=== PATIENT | male | born 1985 | race Caucasian/White ===

== ENCOUNTER 2019-01-30 15:20 | Emergency (ER) | payer OTHER ==
--- NOTE | 2019-01-30 16:25 | RADIOLOGY REPORT (SQ) ---
EXAM DESCRIPTION: WRIST LEFT 3 VIEWS COMPLETED DATE/TIME: 01/30/2019 4:08 pm REASON FOR STUDY: laceration, swelling COMPARISON: None. EXAM PARAMETERS: NUMBER OF VIEWS: Three views. TECHNIQUE: AP, lateral and oblique radiographic images acquired of the left wrist. LIMITATIONS: None. FINDINGS: MINERALIZATION: Normal. BONES: No acute fracture or dislocation. No worrisome bone lesions. JOINTS: No effusion. SOFT TISSUES: No significant soft tissue swelling. No radiopaque foreign body. OTHER: No other significant finding. IMPRESSION: NO FRACTURE. TECHNICAL DOCUMENTATION: JOB ID: [id number] [place]-72 2010 [employer]- All Rights Reserved Reading location - IP/workstation name: [email or web address]
--- NOTE | 2019-01-30 16:26 | ER Document Report ---
HPI - HPI Time Seen by Provider: 01/30/19 15:43 Pain Level: 1 Notes: Patient is an otherwise healthy 33-year-old male presenting to the emergency department with chief complaint of injury to his left wrist area. 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 He reports there were two lacerations one of which was bleeding. He states that he did not seek medical attention at that time. He reports that he now has significant swelling in his left hand and he is unable to make a complete fist. - REPRODUCTIVE Reproductive: DENIES: : Past Medical History - General Information source: Patient - Social History Smoking Status: Current Some Day Smoker Chew tobacco use (# tins/day): No Frequency of alcohol use: None Drug Abuse: None Family History: Reviewed & Not Pertinent Patient has suicidal ideation: No Patient has homicidal ideation: No - Medical History Medical History: Negative Past Surgical History: Reports: Hx Appendectomy - Immunizations Immunizations up to date: Yes Vertical Provider Document - CONSTITUTIONAL Notes: PHYSICAL EXAMINATION: GENERAL: Well-appearing, well-nourished and in no acute distress. HEAD: Atraumatic, normocephalic. EYES: Pupils equal round extraocular movements intact, conjunctiva are normal. ENT: Nares patent NECK: Normal range of motion LUNGS: No respiratory distress Musculoskeletal: Limited range of motion in left hand specifically to the left thumb. Strong radial pulse. Paresthesias noted to left thumb, thenar edema present. NEUROLOGICAL: Normal speech, normal gait. PSYCH: Normal mood, normal affect. SKIN: Warm, Dry, normal turgor, no rashes or lesions noted. - INFECTION CONTROL TRAVEL OUTSIDE OF THE [place] IN LAST 30 DAYS: No Course - Re-evaluation Re-evalutation: 01/30/19 17:10 Dr. Stern at the bedside to consult this patient. 01/30/19 17:21 Spoke with on-call orthopedic surgeon, Dr. Morfin who agrees to come see and evaluate the patient. Dr. Morfin recommending starting patient on appropriate antibiotics and he will follow-up with him in the office. Discussed ED return precautions, patient understands same. - Vital Signs Vital signs: Temp Pulse Resp BP Pulse Ox 98.6 F 65 18 138/79 H 100 01/30/19 15:25 01/30/19 15:25 01/30/19 15:25 01/30/19 15:25 01/30/19 15:25 - Laboratory Result Diagrams: 01/30/19 17:48 01/30/19 17:48 Discharge - Discharge Clinical Impression: hand infection Hand swelling Qualifiers: Laterality: unspecified laterality Qualified Code(s): M79.89 - Other specified soft tissue disorders Condition: Stable Disposition: HOME, SELF-CARE Additional Instructions: Take antibiotics as prescribed. You may take Tylenol or Motrin for the pain. Please follow-up with Dr. Joel in his office on Thursday. His phone number and contact information is below. Return to the emergency department with any new or worsening symptoms. Prescriptions: Doxycycline Hyclate 100 mg PO BID #14 capsule Referrals: KONSTANTIN MORFIN DO [ACTIVE STAFF] - Follow up as needed
[2019-01-30] MEDS ORDERED: DOXYCYCLINE HYCLATE 100 MG TABLET PO ONE (16:56)
--- NOTE | 2019-01-30 17:38 | PDOC CONSULTATION ---
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 Patient treated initially with elevation but continued to have swelling states swelling has not worsened but has not improved and thus was concerned and presented to the emergency room. Patient states pain is 1/5. Notes numbness along the undersurface of the thumb. No numbness in the index through small finger. Pain worse with palpation. Past Surgical History Past Surgical History: Reports: Appendectomy Social History Smoking Status: Current Some Day Smoker Electronic Cigarette use?: No Family History Family History: Reviewed & Not Pertinent Parental Family History Reviewed: No Children Family History Reviewed: Yes Sibling(s) Family History Reviewed.: No Medication/Allergy Home Medications: Doxycycline Hyclate 100 mg PO BID #14 capsule 01/30/19 Allergies/Adverse Reactions: No Known Allergies Allergy (Unverified 01/30/19 15:56) Review of Systems Constitutional: ABSENT: chills, fever(s), headache(s), weight gain, weight loss Eyes: ABSENT: visual disturbances Ears: ABSENT: hearing changes Cardiovascular: ABSENT: chest pain, dyspnea on exertion, edema, orthropnea, palpitations Respiratory: ABSENT: cough, hemoptysis Gastrointestinal: ABSENT: abdominal pain, constipation, diarrhea, hematemesis, hematochezia, nausea, vomiting Genitourinary: ABSENT: dysuria, hematuria Musculoskeletal: PRESENT: as per HPI Integumentary: ABSENT: rash, wounds Neurological: ABSENT: abnormal gait, abnormal speech, confusion, dizziness, focal weakness, syncope Psychiatric: ABSENT: anxiety, depression, homidical ideation, suicidal ideation Endocrine: ABSENT: cold intolerance, heat intolerance, menstrual abnormalities, polydipsia, polyuria Hematologic/Lymphatic: ABSENT: easy bleeding, easy bruising, lymphadenopathy Physical Exam Vital Signs: Temp Pulse Resp BP Pulse Ox 98.6 F 65 18 138/79 H 100 01/30/19 15:25 01/30/19 15:25 01/30/19 15:25 01/30/19 15:25 01/30/19 15:25 Intake & Output 01/29/19 01/30/19 01/31/19 06:59 06:59 06:59 Weight 103.8 kg General appearance: PRESENT: no acute distress, well-developed, well-nourished Head exam: PRESENT: atraumatic, normocephalic Eye exam: PRESENT: conjunctiva pink, EOMI, PERRLA. ABSENT: scleral icterus Ear exam: PRESENT: normal external ear exam Mouth exam: PRESENT: moist, tongue midline Neck exam: PRESENT: full ROM. ABSENT: carotid bruit, JVD, lymphadenopathy, thyromegaly Respiratory exam: PRESENT: unlabored Cardiovascular exam: PRESENT: RRR. ABSENT: diastolic murmur, rubs, systolic murmur Pulses: PRESENT: normal dorsalis pedis pul, +2 pedal pulses bilateral Vascular exam: PRESENT: normal capillary refill GI/Abdominal exam: PRESENT: normal bowel sounds, soft. ABSENT: distended, guarding, mass, organolmegaly, rebound, tenderness Rectal exam: PRESENT: deferred Musculoskeletal exam: PRESENT: other - Left hand: Swelling noted on the thenar eminence with tenderness upon deep palpation. Compartments soft and compressible no sign of compartment syndrome. Full flexion index through small finger. EPL/FPL intact. Hypoesthesias along the radial digital nerve distribution of the thumb. Negative Tinel's. Radial pulse 2+. Cap refill less than 2 seconds. Normal skin turgor. Small 1 cm healed laceration along the volar radial aspect of the wrist no erythema or drainage. Mild tenderness to palpation. Neurological exam: PRESENT: alert, awake, oriented to person, oriented to place, oriented to time, oriented to situation, CN II-XII grossly intact. ABSENT: motor sensory deficit Psychiatric exam: PRESENT: appropriate affect, normal mood. ABSENT: homicidal ideation, suicidal ideation Skin exam: PRESENT: dry, intact, warm. ABSENT: cyanosis, rash Results Impressions: Wrist X-Ray 01/30/19 15:52 IMPRESSION: NO FRACTURE. Status: Image reviewed by me - I have reviewed patient's radiographs which demonstrate soft tissue swelling no evidence of subcutaneous air or foreign body Assessment & Plan - Diagnosis (1) High-pressure injection injury of finger of left hand Qualifiers: Encounter type: initial encounter Qualified Code(s): S69.82XA - Other specified injuries of left wrist, hand and finger(s), initial encounter; W29.8XXA - Contact with other powered hand tools and household machinery, initial encounter Is this a current diagnosis for this admission?: Yes Plan: Patient sustained a high-pressure injection injury to the left hand which was now 4 days old. Currently there is no sign or symptoms of infection however he has a increased risk of developing infection but also atypical infection such as Mycobacterium or vibrio species. Currently I do not feel operative intervention is warranted given his delayed presentation and no signs or symptoms of compartment syndrome or infection. I recommended elevation and treatment with antibiotics. Patient will follow-up with me on 02/04/2019 for recheck if he notices increasing redness swelling or pain he should present to the emergency room or contact my office for further recheck.
[2019-01-30 17:56] VITALS: BP 125/72
[2019-01-30 18:18] LABS: ABSOLUTE EOSINOPHILS # (AUTO) 0.2 10^3/uL (0.0-0.6); ABSOLUTE LYMPHOCYTES (AUTO) 2.1 10^3/uL (0.5-4.7); ABSOLUTE MONOCYTES (AUTO) 0.5 10^3/uL (0.1-1.4); ABSOLUTE NEUT (AUTO) 4.3 10^3/uL (1.7-8.2); BASOPHILS % (AUTO) 0.5 % (0-2); EOSINOPHILS % (AUTO) 2.8 % (0-6); HEMATOCRIT 42.4 % (37.9-51.0); HEMOGLOBIN 14.6 g/dL (13.5-17.0); LYMPHOCYTES % (AUTO) 29.4 % (13-45); MEAN CORPUSCULAR HEMOGLOBIN 29.3 pg (27.0-33.4); MEAN CORPUSCULAR HGB CONC 34.5 g/dL (32.0-36.0); MEAN CORPUSCULAR VOLUME 85 fl (80-97); MONOCYTES % (AUTO) 7.4 % (3-13); PLATELET COUNT 205 10^3/uL (150-450); RED BLOOD COUNT 4.99 10^6/uL (4.35-5.55); RED CELL DISTRIBUTION WIDTH 13.6 % (11.5-14.0); SEGMENTED NEUTROPHILS % (AUTO) 59.9 % (42-78); TOTAL CELLS COUNTED % (AUTO) 100 %; WHITE BLOOD COUNT 7.3 10^3/uL (4.0-10.5)
[2019-01-30 18:37] LABS: ALBUMIN 4.6 g/dL (3.5-5.0); ALKALINE PHOSPHATASE 53 U/L (38-126); ANION GAP 11 (5-19); ASPARTATE AMINO TRANSFERASE 16 U/L (17-59); BILIRUBIN,DIRECT 0.1 mg/dL (0.0-0.4); BILIRUBIN,TOTAL 0.3 mg/dL (0.2-1.3); BLOOD UREA NITROGEN 10 mg/dL (7-20); CALCIUM 9.5 mg/dL (8.4-10.2); CARBON DIOXIDE 23 mmol/L (22-30); CHLORIDE 104 mmol/L (98-107); GLUCOSE 86 mg/dL (75-110); POTASSIUM 4.2 mmol/L (3.6-5.0); TOTAL PROTEIN 7.6 g/dL (6.3-8.2)
[2019-01-30 18:38] LABS: C-REACTIVE PROTEIN < 5.0 mg/L (<10.0)
[2019-01-30 18:54] LABS: ERYTHROCYTE SEDIMENTATION RATE 10 mm/hr (0-15)
== END 2019-01-30 17:53 | disposition home or self-care (01) ==
LOC: ER 15:20
DX: L08.89 Other specified local infections of the skin and subcutaneous tissue (principal); M79.89 Other specified soft tissue disorders
CPT/HCPCS: 36415; 80053; 85025; 85652; 86140; 99283